=== PATIENT | female | born 1980 | race Asian ===

== ENCOUNTER 2017-12-27 18:55 | Emergency (ER) | payer BC ==
[2017-12-27 19:52] LABS: HCG Qualitative,Urine Negative (Negative)
[2017-12-27 19:55] LABS: Bacteria,Urine 1+ /HPF (Negative); Bilirubin,Urine NEG (Negative); Blood,Urine NEG (Negative); Color,Urine Yellow (Yellow); Mucus,Urine 1+ /HPF; Urobilinogen,Urine < 2.0 mg/dL (<2.0)
[2017-12-27 20:19] LABS: Hematocrit 41.2 % (30.3-42.9); Hemoglobin 13.5 gm/dl (10.1-14.3); Mean Corpuscular HGB Conc 33 % (30-34); Mean Corpuscular Hemoglobin 30 pg (28-32); Mean Corpuscular Volume 92 fl (79-97); Platelet Count 411 K/mm3 (140-440); Red Blood Count 4.48 M/mm3 (3.65-5.03); Red Cell Distribution Width 14.3 % (13.2-15.2)
[2017-12-27 21:02] LABS: Blood Urea Nitrogen TNR mg/dL (7-17)
[2017-12-27 21:03] LABS: BUN/Creatinine Ratio TNR; Calcium TNR mg/dL (8.4-10.2); Hemolysis Index TNR
[2017-12-27 21:37] LABS: BUN/Creatinine Ratio 11; Blood Urea Nitrogen 9 mg/dL (7-17); Calcium 9.5 mg/dL (8.4-10.2); Hemolysis Index 20
[2017-12-28] MEDS ORDERED: SUBLIMAZE IV ONE (00:59)
[2017-12-28] MEDS ORDERED: ZOFRAN IV ONE (00:59)
--- NOTE | 2017-12-28 01:08 | Emergency Department Report ---
HPI - General Chief Complaint: Wound/Laceration Time Seen by Provider: 12/28/17 00:52 - HPI HPI: Room 2 The patient is a 37-year-old female presenting with chief complaint of abdominal pain. The patient states in November 2017 she had to be induced in a coma" had a G-tube placed a tracheostomy (patient states she does not know what her underlying diagnosis/etiology was). The patient states she began eating food by mouth proximal one week prior to discharged from the hospital. The patient states for the past week she's had constant aching pain in the midepigastric and bilateral sides of her abdomen especially around the G-tube site. The patient states for the past 6 days she's noticed copious pus draining from around the G-tube site and that the G-tube is call/won't flush. She denies any history of fever but does admit to nausea and vomiting. The patient has her pain is score of 7/10. The patient states she has an appointment with Dr. Ordoñez 01/07/2018 to have her G-tube removed but has not contacted him yet with her above symptoms Location: Abdomen Duration: [See above] Quality: Aching Severity:7/10 Modifying factors: [see above] Context: [see above] Mode of transportation: Unknown ED Past Medical Hx - Past Medical History Hx GERD: Yes Hx Psychiatric Treatment: Yes (bipolar) Additional medical history: elevated cholesterol,rapid heart beat - Surgical History Additional Surgical History: g-tube,trach-11/08/2017-admitted, in induced coma - Family History Family history: no significant - Social History Smoking Status: Never Smoker Substance Use Type: None (denies illicit drug use) - Medications Home Medications: Home Medications Medication Instructions Recorded Confirmed Last Taken Type HYDROcodone/APAP 5-325 [[place] 1 - 2 each PO Q6HR PRN #14 tablet 12/28/17 Unknown Rx 5/325] Levofloxacin [Levaquin] 750 mg PO QDAY #10 tablet 12/28/17 Unknown Rx ED Review of Systems ROS: Stated complaint: FEEDING TUBE CLOGGED/INFECTED Other details as noted in HPI Constitutional: denies: fever Gastrointestinal: abdominal pain, nausea, vomiting Physical Exam - Physical Exam Vital Signs: Vital Signs 12/27/17 19:13 Temperature 98 F Pulse Rate 89 Respiratory 18 Rate Blood Pressure 150/79 O2 Sat by Pulse 98 Oximetry Physical Exam: GENERAL: The patient is well-developed well-nourished female sitting on stretcher not appearing to be in acute distress. [] HEENT: Normocephalic. Atraumatic. Extraocular motions are intact. Patient has moist mucous membranes. NECK: Supple. Trachea midline CHEST/LUNGS: Clear to auscultation. There is no respiratory distress noted. HEART/CARDIOVASCULAR: Regular. There is no tachycardia. There is no gallop rub or murmur. ABDOMEN: Abdomen is soft, with diffuse discomfort to palpation around G-tube site. Patient has normal bowel sounds. There is no abdominal distention. SKIN: There is evidence of dried yellow pus on the dressing overlying the G- tube insertion site. No active drainage seen. No erythema/cellulitis appreciated. There is no edema. There is no diaphoresis. NEURO: The patient is awake, alert, and oriented. The patient is cooperative. The patient has normal speech MUSCULOSKELETAL: There is no evidence of acute injury. ED Course Vital Signs 12/27/17 19:13 Temperature 98 F Pulse Rate 89 Respiratory 18 Rate Blood Pressure 150/79 O2 Sat by Pulse 98 Oximetry - Reevaluation(s) Reevaluation #1: 12/28/17 05:42 Attempted to remove the G-tube however I was not able to deflate the G-tube balloon. Patient advised to follow-up with surgeon for removal - Consultations Consultation #1: 12/28/17 05:[address] Ordoñez ([facility])-states we may remove the G-tube in the ED or outpatient follow-up in office to have G-tube removed. ED Medical Decision Making - Lab Data Result diagrams: 12/27/17 19:34 12/27/17 21:12 Laboratory Tests 12/27/17 12/27/17 12/27/17 19:34 19:34 20:10 WBC 12.3 H RBC 4.48 Hgb 13.5 Hct 41.2 MCV 92 MCH 30 MCHC 33 RDW 14.3 Plt Count 411 Sodium TNR Potassium TNR Chloride TNR Carbon Dioxide TNR Anion Gap TNR BUN TNR Creatinine TNR Estimated GFR TNR BUN/Creatinine Ratio TNR Glucose TNR Calcium TNR Urine Color Yellow Urine Turbidity Clear Urine pH 6.0 Ur Specific [place] 1.020 Urine Protein 30 mg/dl Urine Glucose (UA) Neg Urine Ketones Neg Urine Blood Neg Urine Nitrite Neg Ur Reducing Substances Not Reportable Urine Bilirubin Neg Urine Ictotest Not Reportable Urine Urobilinogen < 2.0 Ur Leukocyte Esterase Mod Urine WBC (Auto) 51.0 H Urine RBC (Auto) 11.0 U Epithel Cells (Auto) 6.0 Urine Bacteria (Auto) 1+ Urine Mucus 1+ Urine HCG, Qual Negative 12/27/17 21:12 WBC RBC Hgb Hct MCV MCH MCHC RDW Plt Count Sodium 136 L Potassium 4.8 Chloride 99.7 Carbon Dioxide 17 L Anion Gap 24 BUN 9 Creatinine 0.8 Estimated GFR > 60 BUN/Creatinine Ratio 11 Glucose 137 H Calcium 9.5 Urine Color Urine Turbidity Urine pH Ur Specific [place] Urine Protein Urine Glucose (UA) Urine Ketones Urine Blood Urine Nitrite Ur Reducing Substances Urine Bilirubin Urine Ictotest Urine Urobilinogen Ur Leukocyte Esterase Urine WBC (Auto) Urine RBC (Auto) U Epithel Cells (Auto) Urine Bacteria (Auto) Urine Mucus Urine HCG, Qual - Radiology Data Radiology results: report reviewed (CT abdomen and pelvis), image reviewed (CT abdomen and pelvis) [address] [address] Cat Scan Report Signed Patient: JULIANA GRIGSBY MR#: [id number] : 1980 Acct:[id number] Age/Sex: 37 / F ADM Date: 12/27/17 Loc: ED Attending Dr: Ordering Physician: DARLING SERVIN MD Date of Service: 12/28/17 Procedure(s): CT abdomen pelvis w con Accession Number(s): [id number] cc: DARLING SERVIN MD FINAL REPORT EXAM: CT ABDOMEN PELVIS W CON HISTORY: Pus draining from around the G-tube insertion. TECHNIQUE: Axial CT images of the abdomen and pelvis were obtained, following the administration of intravenous contrast. Delayed axial images and coronal and sagittal reformatted images were also obtained. No prior studies are available for comparison. FINDINGS: There is mild diffuse fatty infiltration of the liver, with superimposed focal fatty infiltration at the left medial hepatic lobe, adjacent to the falciform ligament. The liver, biliary tree, gallbladder, pancreas, spleen, adrenal glands, and kidneys are unremarkable. Evaluation of the bowel is limited due to lack of oral contrast. The stomach is collapsed, not well evaluated. There is a malpositioned gastrostomy tube, with the balloon located within the left abdominus rectus muscle. There is slight relative thickening/edema of the left rectus abdominus muscle, and minimal inflammatory stranding surrounding the gastrostomy tubing within the subcutaneous fat of the anterior abdominal wall. Minimal soft tissue is also seen interposed between the left rectus muscle and the anterior wall of the stomach. No definite loculated fluid collection is seen to suggest abscess. There is moderate residual stool in the rectum. There is no intestinal obstruction or free air. Of note, the appendix is normal. The abdominal aorta is normal in caliber. There is no pathologic abdominal or pelvic lymphadenopathy. There is no free or loculated fluid collection. Though the urinary bladder is not fully distended, there does appear to be mild anterior urinary bladder wall thickening. The uterus and adnexa demonstrate a grossly normal CT appearance for patient's age. There is a minimal lumbar levoscoliosis. There are mild dependent changes at both lung bases. These findings were discussed with Dr. aDrling Servin at time of interpretation 5:05 a.m. EST 12/28/2017. IMPRESSION: 1. Malpositioned gastrostomy tube, with its balloon located within the left abdominus rectus muscle, with mild relative edema/enlargement of the muscle. No discrete loculated fluid collection seen to suggest abscess. 2. Mild diffuse fatty infiltration of the liver. 3. Mild anterior urinary bladder wall thickening, query cystitis. 4. No intestinal obstruction or free air. Transcribed By: [facility] Dictated By: GENIE LUNA MD Electronically Authenticated By: GENIE LUNA MD Signed Date/Time: 12/28/17507 DD/ 7 TD/TT: 12/28/17507 - Differential Diagnosis G-tube stoma infection, UTI Critical care attestation.: If time is entered above; I have spent that time in minutes in the direct care of this critically ill patient, excluding procedure time. ED Disposition Clinical Impression: UTI (urinary tract infection), Gastrostomy tube dysfunction Disposition: TO HOME OR SELFCARE Is pt being admited?: No Does the pt Need Aspirin: No Condition: Stable Instructions: Urinary Tract Infection in Women (ED) Prescriptions: HYDROcodone/APAP 5-325 [[place] 5/325] 1 - 2 each PO Q6HR PRN #14 tablet PRN Reason: Pain Levofloxacin [Levaquin] 750 mg PO QDAY #10 tablet Referrals: LARISSA HILTON MD [Primary Care Provider] - 3-5 Days SORAYA ORDOÑEZ MD [Staff Physician] - [facility] Time of Disposition: 05:45
[2017-12-28] MEDS ORDERED: NACL ONE (02:31)
--- NOTE | 2017-12-28 05:13 | Cat Scan Report ---
FINAL REPORT EXAM: CT ABDOMEN PELVIS W CON HISTORY: Pus draining from around the G-tube insertion. TECHNIQUE: Axial CT images of the abdomen and pelvis were obtained, following the administration of intravenous contrast. Delayed axial images and coronal and sagittal reformatted images were also obtained. No prior studies are available for comparison. FINDINGS: There is mild diffuse fatty infiltration of the liver, with superimposed focal fatty infiltration at the left medial hepatic lobe, adjacent to the falciform ligament. The liver, biliary tree, gallbladder, pancreas, spleen, adrenal glands, and kidneys are unremarkable. Evaluation of the bowel is limited due to lack of oral contrast. The stomach is collapsed, not well evaluated. There is a malpositioned gastrostomy tube, with the balloon located within the left abdominus rectus muscle. There is slight relative thickening/edema of the left rectus abdominus muscle, and minimal inflammatory stranding surrounding the gastrostomy tubing within the subcutaneous fat of the anterior abdominal wall. Minimal soft tissue is also seen interposed between the left rectus muscle and the anterior wall of the stomach. No definite loculated fluid collection is seen to suggest abscess. There is moderate residual stool in the rectum. There is no intestinal obstruction or free air. Of note, the appendix is normal. The abdominal aorta is normal in caliber. There is no pathologic abdominal or pelvic lymphadenopathy. There is no free or loculated fluid collection. Though the urinary bladder is not fully distended, there does appear to be mild anterior urinary bladder wall thickening. The uterus and adnexa demonstrate a grossly normal CT appearance for patient's age. There is a minimal lumbar levoscoliosis. There are mild dependent changes at both lung bases. These findings were discussed with Dr. Darling Mortensen at time of interpretation 5:05 a.m. EST 12/28/2017. IMPRESSION: 1. Malpositioned gastrostomy tube, with its balloon located within the left abdominus rectus muscle, with mild relative edema/enlargement of the muscle. No discrete loculated fluid collection seen to suggest abscess. 2. Mild diffuse fatty infiltration of the liver. 3. Mild anterior urinary bladder wall thickening, query cystitis. 4. No intestinal obstruction or free air.
[2017-12-28 05:27] VITALS: BP 109/46
== END 2017-12-28 05:50 | disposition home or self-care (01) ==
LOC: ED 18:55
DX: N39.0 Urinary tract infection, site not specified (principal); K94.23 Gastrostomy malfunction; K21.9 Gastro-esophageal reflux disease without esophagitis; E78.00 Pure hypercholesterolemia, unspecified
CPT/HCPCS: 36415; 74177; 80048; 81001; 81025; 85027; 96374; 96375; 99284; J2405; J3010; Q9967